=== PATIENT | female | born 1975 | race Two or more races ===

== ENCOUNTER → 2017-11-01 | Outpatient (CLI) | payer MEDICAID, OTHER | LOC: CIMAGING 08:35 | PROVIDERS: ATTEND Family Medicine | DX: Z12.31 Encounter for screening mammogram for malignant neoplasm of breast (principal) ==

== ENCOUNTER → 2018-07-14 | Outpatient (CLI) | payer MEDICAID | LOC: CIMAGING 12:19 ==

== ENCOUNTER → 2018-10-23 | Outpatient (CLI) | payer MEDICAID | LOC: CIMAGING 13:46 ==